=== PATIENT | male | born 1980 | race Caucasian/White ===

== ENCOUNTER → 2021-01-31 14:06 | Outpatient (BNVA) | payer OTHER, SELFPAY | PROVIDERS: PCP Family Medicine; Referring Provider Family Medicine; Visit Provider Specialist | DX: S12.200S Unspecified displaced fracture of third cervical vertebra, sequela (principal); S12.300S Unspecified displaced fracture of fourth cervical vertebra, sequela; Y93.9 Activity, unspecified; M47.14 Other spondylosis with myelopathy, thoracic region; G43.711 Chronic migraine without aura, intractable, with status migrainosus | CPT/HCPCS: 99205 ==

== ENCOUNTER 2021-02-16 10:54 | Outpatient (CLI) | payer OTHER, SELFPAY ==
--- NOTE | 2021-02-16 11:45 | MR_ITS ---
WS: [id number] MRI CERVICAL SPINE NONCONTRAST HISTORY: S12.200A - Unspecified displaced fracture cervical spine. COMPARISON: None available. Technique: Multiplanar, multisequence noncontrast imaging of the cervical spine. Mild straightening of the normal cervical lordosis. Anterior cervical fusion hardware at C3-4. No acu te fracture or marrow edema. Craniocervical junction is normal. Signal within the cervical cord is normal. Visualized posterior fossa is unremarkable. Craniocervical junction, C1 and C2 relationship, odontoid process and soft tissues are normal. C2-C3: Normal. C3-C4: Normal. C4-C5: Mild osteophytic ridging. Shallow central disc protrusion. Mild central and foraminal narrowin g. No significant stenosis. C5-C6: Diffuse annular disc bulging with a central disc protrusion. Disc and osteophytes contributing to mild central and moderate bilateral foraminal stenosis. C6-C7: Diffuse annular disc bulging and foraminal osteophytes. Mild bilateral foraminal stenosis. C7-T1: Normal. Paraspinal soft tissue are normal. MR/MR cervical spin wo con* [id number] IMPRESSION: 1. Prior anterior cervical fusion at C3-4. 2. Moderate bilateral foraminal stenosis at C5-6 with mild central stenosis d ue to disc and osteophyte disease. 3. Mild bilateral foraminal stenosis at C6-7. 4. Mild central and foraminal stenosis at C4-5 due to disc and osteophyte dise ase.
== END 2021-02-16 10:55 | disposition home or self-care (01) ==
LOC: RADSHAW 10:58
PROVIDERS: PCP Family Medicine; Visit Provider Specialist
DX: S12.200A Unspecified displaced fracture of third cervical vertebra, initial encounter for closed fracture (principal); X58.XXXA Exposure to other specified factors, initial encounter; M43.22 Fusion of spine, cervical region; M48.02 Spinal stenosis, cervical region; M25.78 Osteophyte, vertebrae
CPT/HCPCS: 72141

== ENCOUNTER → 2021-03-31 12:31 | Outpatient (BNVA) | payer OTHER, MEDICARE, SELFPAY | PROVIDERS: PCP Family Medicine; Visit Provider Specialist | DX: G43.711 Chronic migraine without aura, intractable, with status migrainosus (principal); G95.89 Other specified diseases of spinal cord; M48.02 Spinal stenosis, cervical region; R26.81 Unsteadiness on feet | CPT/HCPCS: 64615; 99214; J0585 ==

== ENCOUNTER → 2022-04-06 15:54 | Outpatient (BNVA) | payer MEDICARE, OTHER, SELFPAY | PROVIDERS: PCP Family Medicine; Visit Provider Emergency Medicine | DX: S62.602A Fracture of unspecified phalanx of right middle finger, initial encounter for closed fracture (principal); X58.XXXA Exposure to other specified factors, initial encounter | CPT/HCPCS: 73130 ==

== ENCOUNTER → 2022-04-13 09:33 | Outpatient (BNVA) | payer MEDICARE, OTHER, SELFPAY | PROVIDERS: PCP Family Medicine; Referring Provider Emergency Medicine; Visit Provider Student in an Organized Health Care Education/Training Program | DX: S64.491A Injury of digital nerve of left index finger, initial encounter (principal); S62.621A Displaced fracture of middle phalanx of left index finger, initial encounter for closed fracture; W23.0XXA Caught, crushed, jammed, or pinched between moving objects, initial encounter | CPT/HCPCS: 73130; 99204 ==

== ENCOUNTER 2022-04-14 11:59 | Day surgery (SDC) | payer MEDICARE, OTHER, SELFPAY ==
[2022-04-13 17:52] VITALS: BMI 21.5
[2022-04-14] VITALS (10 sets, daily range): BP systolic 143–148; BP diastolic 69–88; PULSE 54–89; RESP 14–18; TEMP 36.2–37.1; O2SAT 93–99
--- NOTE | 2022-04-14 | SCC_ITS ---
Procedure done: Left index finger penetrating trauma wound exploration with digital nerve neurolysis and flexor tendon tenolysis 28 seconds of fluoroscopic guidance, for a cumulative dose of 0.4 mGy, was provided to Dr. Ye by the radiology department. C-arm images of the LEFT hand were saved for the patient's permanent record. [facility]
--- NOTE | 2022-04-14 | XR_ITS ---
WS: [id number] C-ARM RADIOGRAPHS LEFT HAND; 3 IMAGES HISTORY: NAYELY PICS COMPARISON: 04/13/2022 Intraoperative imaging during orthopedic evaluation of the second finger. There is a fracture involvi ng the proximal middle phalanx. No hardware is placed. XR/XR hand LT 2V [id number] IMPRESSION: Intraoperative imaging evaluation of the fracture of the middle phalanx second finger.
[2022-04-14] MEDS: acetaminophen 1,000 MG/100 ML PIGGYBACK 400 MG IV (12:55)
[2022-04-14] MEDS: ondansetron 2 mg/ML SDV 2 mL 4 MG IVP (12:55)
[2022-04-14] MEDS: ketorolac 30 mg/mL INJ IVP (12:55)
[2022-04-14] MEDS: sodium chloride 0.9% 1,000 ML 30 ML IV (12:55)
--- NOTE | 2022-04-14 14:49 | ANES.PREANE2 ---
Pre-Anesthetic Assessment Height/Weight: Height 1.78 m Weight 68.039 kg Temp Pulse Resp BP Pulse Ox O2 Del Method 98.7 F 54 L 18 143/88 98 04/14/22 12:34 04/14/22 12:34 04/14/22 12:34 04/14/22 12:34 04/14/22 12:34 04/14/22 12:34 Preop Diagnosis: Left index finger laceration with digital nerve injury Operation Date: 04/14/22 13:35 Proposed Procedures p Left Index Finger Laceration Exploration Possible Digital Nerve Repair (Left) - Jaime Ye DO Familial anesthetic complications: none Was Beta Ailin taken within 24 hours: N/A Was Clonidine taken within 24 hours: N/A Last intake: Intake Last Liquid Date 04/13/22 Last Liquid Time 22:00 Last Solid Date 04/13/22 Last Solid Time 22:00 Social No alcohol and No tobacco Exam alert, oriented x 3, clear to auscultation bilaterally and regular rate & rhythm Airway Submandibular: within normal limits Cervical ROM: within normal limits Mallampati: Class II Dentition: full Neuropsych Anxiety and Depression PTSD, myelopathy, chronic pain Anesthetic Plan ASA status: 2 Anesthesia: Choice Medications/Allergies Home Medications Medication Instructions Recorded Confirmed Last Taken Type hydrocodone 10 mg-acetaminophen 1 tab PO Q6H PRN Pain 01/31/21 04/13/22 Unknown History 325 mg tablet hydrocodone bitartrate 30 mg 30 mg PO DAILY 03/25/21 04/13/22 Unknown History tablet,crush resist,extended rel. 24hr (Hysingla ER) Allergies Allergy/AdvReac Type Severity Reaction Status Date / Time tramadol Allergy ADR-Migrain Verified 04/14/22 12:54 e Current Medications Generic Name Dose Route Start Last Admin Trade Name Freq PRN Reason Stop Dose Admin Sodium Chloride 1,000 mls @ 30 mls/hr 04/14/22 12:15 04/14/22 12:55 Sodium Chloride 0.9% IV 04/15/22 12:14 30 mls/hr .Q24H DANDRE Administration Ondansetron HCl 4 mg 04/14/22 12:06 04/14/22 12:55 Ondansetron 2 Mg/Ml Sdv 2 Ml IVP 4 mg Q5M PRN Administration NAUSEA AND VOMITING PFSH Anesthesia Medical History (Updated 04/14/22 @ 07:17 by Jaime Ye DO) Digital nerve laceration, finger Fracture of middle phalanx of finger of left hand Social History Smoking and tobacco status: never smoked Alcohol intake: never History of recent travel: No Data Anesthesia Cardiac Studies: No Data to Display
[2022-04-14] MEDS: HYDROmorphone 1 mg/mL INJ 1 mL 0.5 MG IVP (14:50)
--- NOTE | 2022-04-14 15:54 | W.PM.OPSUD ---
Surgery/Procedure H&P Update DATE OF PROCEDURE: April 14, 2022 DATE H&P PERFORMED: 04/13/22 CHANGES TO PREVIOUS DOCUMENTATION: None. Patient has persistent tingling to his fingertips on the left index finger particularly on the ulnar side of the digit. He does have some diffuse tenderness to palpation along the flexor tendon sheath with only vague tenderness at the A1 mode. We will vent the flexor tendon sheath to verify no deep-seated infection however his incision looks well-healed. Plan for OR for left index finger laceration exploration with possible digital nerve repair and possible flexor tendon repair PREOP DIAGNOSIS: Left index finger laceration with digital nerve injury PRIMARY INDICATION FOR PROCEDURE: Left index finger penetrating trauma with possible digital nerve injury and flexor tendon injury PLANNED PROCEDURE: Operation Date: 04/14/22 13:35 Proposed Procedures p Left Index Finger Laceration Exploration Possible Digital Nerve Repair (Left) - Jaime Ye DO
[2022-04-14] MEDS: ceFAZolin 2,000 MG in sodium chloride 0.9% (plus) 50 ML 100 MG IV (16:47)
--- NOTE | 2022-04-14 17:19 | PM.OP2 ---
Brief Operative Note Date of procedure: 04/17/22 Pre-op diagnosis: Left index finger penetrating trauma with possible digital nerve injury Post-op diagnosis: other (Left index finger penetrating trauma) Procedure Done: Left index finger penetrating trauma wound exploration with digital nerve neurolysis and tenolysis flexor tendon. Surgeon: Jaime Ye Estimated blood loss (mL): 5 Complications: None Post-op Plan: Patient to recover in PACU. Patient has dressing on in place. May be weightbearing as tolerated left hand. Patient given appropriate discharge instructions as well we will continue his home pain medication regimen per patient's request. Recommend ice and elevate. Follow-up with him in office in 2 weeks. Any questions or concerns he can contact the office. Condition: stable Disposition: same day Coding Level of Care Code Acute Truckload Checker for Sanjuanita Borja
--- NOTE | 2022-04-14 17:19 | PM.PACU ---
PACU note Narrative: Patient recovering in PACU. Postoperatively fingertips are warm well-perfused brisk capillary refill less than 2 seconds. Patient still sedated from anesthesia and unable to follow commands for motor and sensory examination. Dressing on in place clean dry and intact Exam: unarousable (Still sedated from anesthesia unable to follow commands see report narrative for detailed exam) Disposition: discharged
--- NOTE | 2022-04-14 17:19 | PM.OP ---
Operative Report Date of procedure: April 14, 2022 Pre-op diagnosis: Preop Diagnosis Left index finger laceration with digital nerve injury Post-op diagnosis: Left index finger laceration zone 2 with no flexor tendon or digital nerve laceration, left index finger middle phalanx fracture Procedure done: Left index finger penetrating trauma wound exploration with digital nerve neurolysis and flexor tendon tenolysis Specimens removed/disposition: Cultured synovial fluid from the flexor tendon sheath aerobic and anaerobic and sent for microbiology Surgeon: Jaime Ye DO Estimated blood loss: 5 cc 32 minutes IV fluids: See anesthesia record Complications: None Findings: See operative report narrative Condition: stable Disposition: same day Brief History: Patient is a 41-year-old gentleman who sustained a crush injury to his left index finger sustaining a laceration at zone 2 directly over the flexion crease of the PIP joint. He states this was repaired in the emergency department roughly a week ago. He was seen and evaluated my office. Patient on x-rays appear to have a nondisplaced fracture of the base of the left index finger middle phalanx. Physical examination findings concerning for digital nerve injury and he had significant pain out of proportion and decreased sensation. At this point time through shared decision making recommended left index finger surgical exploration of penetrating trauma with possible digital nerve repair and any repair of any other underlying damage structures. He understands the risk benefits complications alternatives to surgical nonsurgical treatment options and he agrees to proceed with surgical intervention at this time. Of note patient does have significant past medical history of absence seizures and he does have some psych issues which he openly shared with me in the office as well as his spouse. Understand that he works with his hands and that he has a possible nerve injury would recommend exploration and repair of any underlying structures. Patient understands agrees with current plan. All questions answered. Procedure: Patient seen and evaluated in the preoperative holding area. The consent was reviewed with patient. All questions were answered at this time. The correct extremity/finger was then marked. Patient was seen evaluated by the anesthesia department and once cleared for surgery was taken back to the operative suite. He was placed on this OR table in supine position with armboard to the left upper extremity. He underwent anesthesia per the anesthesia department. A nonsterile tourniquet was applied to the left upper extremity. All bony prominences well-padded and patient was appropriately secured to the bed. This point time the left upper extremity was then prepped and draped in standard orthopedic fashion. Final timeout performed. Antibiotics were held in case there was a deep infection after exploration. Esmarch tourniquet was used exsanguinate the left upper extremity and tourniquet was insufflated to 250 mmHg. Patient's previous incision transversely over the PIP flexion crease of the left index finger sutures were subsequently removed and I subsequently utilized a Jing style incision to extend my incision both distally to the level of the DIP flexion crease and proximally to the level of the MP flexion crease to create full-thickness skin flaps. No evidence of purulence were noted. I used sharp scalpel excision as well as dissecting scissors for my dissection after I created my full flaps these were retracted and the extent of the laceration was evaluated. This did appear to violate the C2 of the cruciate system no violation of the A4 mode was noted. No violation of any flexor tendons was noted. This point time I then began spreading and performed a dissection to identify the ulnar and radial digital nerve. Each of these were fully intact and incomplete continuity with no evidence of disruption. However there was significant scarring of these nerves and as result a neurolysis was performed of both the radial and ulnar digital nerves. Where the laceration extended through C2 the FDP tendon appeared adhered and scarred as result a tenolysis was performed of FDP. I did see the slips of the FDS which were intact and no adhesions noted. There did not appear to be any violation of the PIP joint. No significant displacement of middle phalanx fracture. This point in time I then milked the flexor tendon sheath from the A1 mode to the violation of the sheath and there was normal-appearing synovial fluid. Given patient's presentation I did culture this due to this being a week out from an injury and he was having pain with passive range of motion however this did not have any findings clinically that were concerning for a flexor tenosynovitis. At this point time I thoroughly irrigated the wound bed. I utilized an Angiocath and flushed out the flexor tendon sheaths for thorough irrigation this was done both proximally and distally within the extent of my incision. Once this was done tourniquet was then deflated hemostasis was maintained with bipolar electrocautery as well as pressure. I then closed the incision with interrupted nylon suture. Incision was then dressed with Xeroform 4 x 4's Curlex and an Stephen wrap. Patient tolerated procedure without complication was taken to PACU in stable condition: Disposition: Patient taken to PACU in stable condition. Patient will discharge later today. No repair of any underlying structures was performed as the digital neurovascular bundle was intact on both sides of the index finger dressing instructions as well as postoperative pain medication which she will continue his home pain regiment was given to patient postoperatively. We will have patient follow-up with us in 2 weeks. He can be tolerated range of motion of the hand as he can tolerate. Would recommend when dressing comes off that he magnus tape for treatment of his nondisplaced fracture of the base of the middle phalanx. Would recommend holding on weightbearing at this time until this heals but would encourage range of motion. Follow-up with me in office in 2 weeks.
--- NOTE | 2022-04-14 17:48 | ANE.PACU2 ---
Documented by User: Shilpi Lozoya 04/14/22 17:49 Inpatient post-anesthesia follow up: Airway intact: Yes Vital signs: Temperature 97.1 F Pulse Rate 64 Respiratory Rate 14 Blood Pressure 148/69 Pulse Oximetry 93 Oxygen Delivery Me thod Simple Mask Oxygen Flow Rate 6 Fraction of Inspir ed Oxygen Hydration adequate: Yes Nausea and vomiting: No Pain level: 1 Mental status: Baseline Documented by User: Doron Haas 04/15/22 08:03 Inpatient post-anesthesia follow up: Additional Comments: Good surgical pain control, chronic pain issues, psych issues--difficult patient emotionally, very manipulative.
--- NOTE | 2022-04-14 18:14 | SUR.PHASEI ---
1805 Unable to get more than 1 blood pressure on patient. Pt woke up and pulled off blood pressure cuff and did not want it placed on again. Attempted to explain the importance of obtaining blood pressures and pt continues to decline.
== END 2022-04-14 18:39 | disposition home or self-care (01) ==
PROVIDERS: PCP Family Medicine; Visit Provider Student in an Organized Health Care Education/Training Program
PROC: (CPT 26440; principal; 2022-04-14 13:25)
DX: S64.491A Injury of digital nerve of left index finger, initial encounter (principal); W23.0XXA Caught, crushed, jammed, or pinched between moving objects, initial encounter; F41.9 Anxiety disorder, unspecified; F32.A Depression, unspecified; G89.18 Other acute postprocedural pain
CPT/HCPCS: 26440; 64702; 73120; 76000; 87070; 87075; 87205; 96374; 99284; J0131; J0690; J1100; J1170; J1885; J2250; J2405; J2704; J3010; J3490; J7030; Q0162

== ENCOUNTER 2022-04-14 18:56 | Emergency (ER) | payer MEDICARE, OTHER, SELFPAY ==
[2022-04-14 19:07] VITALS: BP 131/88; PULSE 87; RESP 16; TEMP 36.7; O2SAT 97; BMI 22.1
[2022-04-14 19:45] VITALS: RESP 17
[2022-04-14] MEDS: HYDROmorphone 1 mg/mL INJ 1 mL 2 MG IVP (19:45)
[2022-04-14] MEDS: ondansetron 4 MG Tablet PO (19:45)
[2022-04-14 21:10] VITALS: PULSE 99; RESP 16
--- NOTE | 2022-04-14 21:11 | ED_ITS ---
HPI - Extremity Problem General: Chief complaint: Extremity Problem,Nontraumatic Stated complaint: in pain post surgery Time Seen by Provider: 04/14/22 19:17 History of Present Illness: 41-year-old gentleman who just got out of an outpatient surgery for his left index finger. This gentleman had some trouble with agitation coming out of anesthesia requiring a bit of a prolonged recovery in the recovery room. He was placed in a splint following his surgery. He was told that he would likely be numb from a nerve block following his surgery. He states that he was not given pain medication and recovery, and that his hand is hurting quite badly with pain radiating up the forearm into the elbow. PFS ED PFS: Medical History (Updated 04/14/22 @ 22:17 by Melvin Ibanez DO) Digital nerve laceration, finger Fracture of middle phalanx of finger of left hand Social History Smoking and tobacco status: never smoked Alcohol intake: never History of recent travel: No Course Vital Signs: Vital signs: Vital Signs Temperature 98.1 F 04/14/22 19:07 Pulse Rate 99 04/14/22 21:10 Respiratory Rate 16 04/14/22 21:10 Blood Pressure 131/88 04/14/22 19:07 Pulse Oximetry 97 04/14/22 19:07 Oxygen Delivery Me thod 04/14/22 19:07 MDM - Extremity (Nontraumatic) Medical Decision Making This patient states that he is in significant pain. He is anxious on examination. Dressing is loosened by nursing without any improvement. There is no drainage to his wound visible in the dressing. He is given an injection of 2 mg of intramuscular Dilaudid without significant improvement in his pain, although he notes that it did help to some degree. I spoke with his surgeon, who notes that the surgery went well, he had no significant swelling and no complication with his repair. He does not know why the patient would be in such significant pain. There does not appear to be any cyanosis of the finger. His recommendations were further pain medication versus a digital block performed in the ER. I went back in to see the patient following my discussion with the surgeon. He is significantly agitated. He appears upset, and states he is in pain. He was offered a digital block, but declined. He was offered another injection for pain, but declined. He stated that he needed to get home, that his was upset, and asks to leave the ER. I again offered treatment options such as further inspection of his wound with digital block, a mild sedative to help him rest at home. He maintains that he just wanted to leave. I offered to print his discharge instructions, but given the option to leave prior to receiving his discharge instructions if he felt like he needed to go now. He chose to exit the ER. His family may call back for discharge instructions. Discharge Plan Discharge Patient Disposition: Home Clinical Impression: Postoperative pain Condition: Stable Prescriptions: No Action hydrocodone-acetaminophen 10-325 mg tablet 1 tab PO Q6H PRN (Reason: Pain) hydrocodone bitartrate [Hysingla ER] 30 mg tablet,oral only,ext.rel.24 hr 30 mg PO DAILY ondansetron 4 mg tablet,disintegrating 4 mg PO DAILY PRN (Reason: nausea and vomiting) 5 Days Qty: 10 0RF Bactrim 400-80 mg tablet 1 tab PO BID 10 Days Qty: 20 0RF Discharge Orders: Discharge ED (Routine); Ordered 04/14/22 Ordered By: Melvin Ibanez Referrals: Nadia Gomez MD [Primary Care Provider] - Patient Instructions: Pain Management, Opioid Safety Activity Restrictions/Additional Instructions: You are experiencing significant postoperative pain. There was no complication of your procedure. Some people have more pain than others following interventions. This could be an effect of waking from anesthesia as well. Return for fever, worsening swelling or any drainage. Follow-up with your surgeon as directed. Ice frequently through your splint, as it may provide significant pain relief. Coding Level of Care Code ED Community Organization Director for Sanjuanita Borja
== END 2022-04-14 21:23 | disposition home or self-care (01) ==
PROVIDERS: Emergency Provider Emergency Medicine; PCP Family Medicine
DX: G89.18 Other acute postprocedural pain (principal)
CPT/HCPCS: 96374; 99284; J1170; Q0162

== ENCOUNTER → 2022-04-28 09:57 | Outpatient (BNVA) | payer MEDICARE, OTHER, SELFPAY | PROVIDERS: PCP Family Medicine; Visit Provider Student in an Organized Health Care Education/Training Program | DX: S62.621A Displaced fracture of middle phalanx of left index finger, initial encounter for closed fracture (principal); X58.XXXA Exposure to other specified factors, initial encounter | CPT/HCPCS: 73130; 99024 ==

== ENCOUNTER → 2022-05-30 10:01 | Outpatient (BNVA) | payer MEDICARE, OTHER, SELFPAY | PROVIDERS: PCP Family Medicine; Visit Provider Student in an Organized Health Care Education/Training Program | DX: S62.621D Displaced fracture of middle phalanx of left index finger, subsequent encounter for fracture with routine healing (principal); X58.XXXD Exposure to other specified factors, subsequent encounter | CPT/HCPCS: 73130; 99024 ==

== ENCOUNTER 2022-10-04 13:24 | Outpatient (CLI) | payer OTHER, SELFPAY ==
--- NOTE | 2022-10-04 13:33 | MR_ITS ---
WS: [id number] MRI CERVICAL SPINE NONCONTRAST TECHNIQUE: Sagittal T1, T2 and STIR imaging. Axial T2, gradient, and fiesta imaging. CLINICAL INFORMATION: CERVICAL RADICULOPATHY COMPARISON: None. FINDINGS: Straightening of the normal cervical lordosis. Prior postoperative changes C3-C4 ACDF. Cord signal is normal. C2-C3: Mild facet arthropathy. Spinal canal and foramen are patent. C3-C4: Mild facet arthropathy. Spinal canal and foramen are patent. C4-C5: Postoperative changes ACDF. Mild facet arthropathy. Mild LEFT and no significant RIGHT foramin al narrowing. Spinal canal is patent. C5-C6: Disc osteophyte complex with endplate ridging. Moderate to severe LEFT and mild RIGHT bony for aminal narrowing. Mild facet arthropathy. Mild central canal stenosis with slight indentation on cerv ical cord. C6-C7: Disc osteophyte complex with a tiny RIGHT pericentral protrusion. Slight contact of the cervic al cord. Mild central canal stenosis. Moderate LEFT and mild RIGHT bony foraminal narrowing. Mild fac et arthropathy. C7-T1: LEFT osteophytic ridging. Mild LEFT and no RIGHT foraminal narrowing. Spinal canal is patent. Visualized brain stem structures: Normal. Prevertebral soft tissues: Normal. MR/MR cervical spin wo con* [id number] IMPRESSION: 1. Straightening of the normal cervical lordosis with ACDF C3-C4. Small amount of myelomalacia in the cervical cord at this level. 2. Disc osteophyte complex C5-C6 eccentric to the LEFT with mild central canal stenosis. Slight indentation LEFT ventral cervical cord. 3. Disc osteophyte complex with a tiny RIGHT pericentral protrusion with sligh t contact of the cervical cord. This appears slightly progressed. Mild central canal stenosis. 4. Moderate to severe LEFT C5-C6 and moderate LEFT C6-C7 bony foraminal narrow ing. Mild LEFT C7-T1 bony foraminal narrowing.
== END 2022-10-04 13:25 | disposition home or self-care (01) ==
LOC: RAD 13:28
PROVIDERS: PCP Family Medicine; Visit Provider Family Medicine
DX: M54.12 Radiculopathy, cervical region (principal); M48.02 Spinal stenosis, cervical region
CPT/HCPCS: 72141

== ENCOUNTER 2022-10-12 09:40 | Outpatient (CLI) | payer OTHER, SELFPAY ==
--- NOTE | 2022-10-12 10:13 | XR_ITS ---
WS: [id number] Exam: XR abdomen min 2V [id number] Date/Time of Exam: 10/12/2022 10:21 AM Reason For Exam: HX OF KIDNEY STONES No bowel obstruction or free air. No sign of organ enlargement. Regional bony elements are intact. 3 mm right pelvic calcification noted which is nonspecific. XR/XR abdomen min 2V [id number] IMPRESSION: 1. No acute abdominal process.
[2022-10-12 10:18] LABS: Basophils # 0.1 10^3/uL (0.0-0.1); Basophils % 1.2 %; Eosinophils # 0.2 10^3/uL (0.0-0.8); Eosinophils % 4.5 %; Hematocrit 40.9 % (42.0-52.0); Hemoglobin 13.6 g/dL (11.7-16.6); Lymphocytes # 1.8 10^3/uL (0.8-4.8); Lymphocytes % 34.9 %; Mean Corpuscular HGB Conc 33.3 g/dL (30.0-36.0); Mean Corpuscular Hemoglobin 28.5 pg (28.0-34.0); Mean Corpuscular Volume 85.6 fl (80-94); Mean Platelet Volume 9.6 fL (7.4-10.4); Monocytes # 0.3 10^3/uL (0.2-0.9); Monocytes % 6.7 %; Neutrophils # 2.66 10^3/uL (1.8-7.7); Neutrophils % 52.5 %; Nucleated Red Blood Cells % 0 %; Platelet Count 218 10^3/cmm (130-400); Red Blood Count 4.78 10^6/uL (4.1-5.3); White Blood Count 5.1 10^3/uL (4.0-10.0)
[2022-10-12 10:45] LABS: Prostate Specific Antigen 0.729 ng/mL (0-4)
[2022-10-13 13:25] LABS: Albumin 4.7 g/dL (3.6-5.1)
[2022-10-13 14:45] LABS: Sex Hormone Binding Globulin 45 nmol/L (10-50); Testosterone Bioavailable 109.5 ng/dL (110.0-575.0); Testosterone Free 51.1 pg/mL (46.0-224.0); Testosterone Total Males IA 500 ng/dL (250-827)
== END 2022-10-12 09:41 | disposition home or self-care (01) ==
LOC: LAB 09:47
PROVIDERS: PCP Family Medicine; Visit Provider Nurse Practitioner Family
DX: Z87.442 Personal history of urinary calculi (principal); Z79.890 Hormone replacement therapy
CPT/HCPCS: 36415; 74019; 82040; 84153; 84270; 84403; 85025

== ENCOUNTER → 2022-10-13 13:40 | Outpatient (BNVA) | payer MEDICARE, OTHER, SELFPAY | PROVIDERS: PCP Family Medicine; Visit Provider Nurse Practitioner | DX: M79.642 Pain in left hand (principal); S61.211A Laceration without foreign body of left index finger without damage to nail, initial encounter; X58.XXXA Exposure to other specified factors, initial encounter | CPT/HCPCS: 73130 ==